=== PATIENT | female | born 1970 | race Caucasian/White ===

== ENCOUNTER 2021-01-04 12:47 | Emergency (ER) | payer OTHER ==
[~2021-01-04] VITALS: Ht 165.1 cm; Wt 68.0 kg
[2021-01-04] MEDS ORDERED: IV NORMAL SALINE 1000 ML BAG IV ONE (13:15)
[2021-01-04] MEDS ORDERED: ACETAMINOPHEN 325 MG TABLET PO ONE (13:15)
[2021-01-04] MEDS ORDERED: GABAPENTIN 100 MG CAPSULE PO ONE (13:15)
--- NOTE | 2021-01-04 13:15 | NUR ---
TEXTED DR. MEEKS FOR MRI APPROVAL.
[2021-01-04] MEDS ORDERED: ACETAMINOPHEN 325 MG TABLET ONE (13:27)
[2021-01-04] MEDS ORDERED: GABAPENTIN 100 MG CAPSULE ONE (13:27)
[2021-01-04 13:32] LABS: BASOPHILS % (AUTO) 0.5 % (0.0-2.0); EOSINOPHILS # (AUTO) 0.1 K/uL (0.0-0.7); HEMATOCRIT 38.8 % (31.2-41.9); HEMOGLOBIN 13.2 g/dL (10.9-14.3); LYMPHOCYTES # (AUTO) 1.8 K/uL (20.0-40.0); LYMPHOCYTES % (AUTO) 32.5 % (20.5-51.5); MEAN CORPUSCULAR HEMOGLOBIN 31.7 uug (24.7-32.8); MEAN CORPUSCULAR HGB CONC 34 g/dL (32.3-35.6); MONOCYTES # (AUTO) 0.5 K/uL (2.0-10.0); MONOCYTES % (AUTO) 8.5 % (0.0-11.0); NEUTROPHILS # (AUTO) 3.2 K/uL (1.8-8.9); NEUTROPHILS % (AUTO) 57.5 % (38.5-71.5); PLATELET COUNT (AUTO) 305 K/uL (179-408); RED BLOOD CELL COUNT(AUTO) 4.17 MIL/uL (3.63-4.92); WHITE BLOOD COUNT (AUTO) 5.5 K/uL (3.8-11.8)
--- NOTE | 2021-01-04 13:35 | NUR ---
Called [facility] for transfer to [place] for MRI.
[2021-01-04 13:41] LABS: CREATININE 0.8 mg/dL (0.6-1.3); POTASSIUM 3.8 mmol/L (3.5-5.1)
--- NOTE | 2021-01-04 13:45 | NUR ---
Called [facility] for BLS transport to [facility] for MRI, eta 60mins.
[2021-01-04 13:49] LABS: *AMPHETAMINE, URINE NEGATIVE (NEGATIVE); *CANNABINOID, URINE NEGATIVE (NEGATIVE); *COCCAINE, URINE NEGATIVE (NEGATIVE); *OPIATE, URINE NEGATIVE (NEGATIVE); *PHENCYCLIDINE SCREEN,URINE NEGATIVE (NEGATIVE)
--- NOTE | 2021-01-04 14:44 | NUR ---
Pt left ER via ambulance to [place] for MRI.
--- NOTE | 2021-01-04 16:24 | NUR ---
Pt is back from MRI, resting in bed, reports decresed tingling in the arm.
--- NOTE | 2021-01-04 16:51 | NUR ---
CALLED DR. PATEL OFFICE FOR NEURO SURGERY CONSULT, LEFT A MESSAGE
--- NOTE | 2021-01-04 17:28 | NUR ---
No calls recieved from Dr Silveira. Paged dr Michael(Neuro surgeon).
[2021-01-04] MEDS ORDERED: KETOROLAC TROMETHAMINE 15 MG INJ IVP ONE (17:30)
[2021-01-04] MEDS ORDERED: DEXAMETHASONE SOD PHOSPHATE 4 MG INJ IV ONE (17:30)
--- NOTE | 2021-01-04 17:32 | NUR ---
Dr Michael speaking to ROSENDO COFFMAN.
[2021-01-04] MEDS ORDERED: KETOROLAC TROMETHAMINE 15 MG INJ ONE (17:37)
[2021-01-04] MEDS ORDERED: DEXAMETHASONE SOD PHOSPHATE 10 MG INJ ONE (17:37)
[2021-01-04] MEDS ORDERED: OXYC-128 PO (17:52)
[2021-01-04] MEDS ORDERED: LIDO30AD10 TD (17:52)
[2021-01-04] MEDS ORDERED: IBUP-1955 PO (17:52)
[2021-01-04] MEDS ORDERED: CYCL10TA9 PO (17:52)
[2021-01-04 18:04] VITALS: BP 132/60
--- NOTE | 2021-01-04 18:04 | NUR ---
IV removed. Catheter intact and site benign. Pressure and 4x4 gauze applied to site. No bleeding noted.
--- NOTE | 2021-01-04 18:46 | NUR ---
Patient discharged to home in stable condition. Written and verbal after care instructions given. Patient verbalizes understanding of instructions. Stressed follow up or return to ER for worsening s/s. Pt walked out of Er w/ steady gait.
== END 2021-01-04 18:50 | disposition home or self-care (01) ==
LOC: ER 12:47
DX: M50.11 Cervical disc disorder with radiculopathy, high cervical region (principal); R03.0 Elevated blood-pressure reading, without diagnosis of hypertension; M48.02 Spinal stenosis, cervical region; N13.30 Unspecified hydronephrosis; M51.34 Other intervertebral disc degeneration, thoracic region
CPT/HCPCS: 36415; 71045; 72141; 72146; 80048; 80307; 84702; 85025; 96361; 96374; 96375; 99285; J1100; J1885; 70030-TC; A4663; J7030